=== PATIENT | male | born 1960 | race Caucasian/White ===

== ENCOUNTER 2017-07-20 08:54 | Emergency (ER) | payer BC ==
[~2017-07-20] VITALS: Ht 177.8 cm; Wt 77.3 kg
[2017-07-20 09:04] VITALS: BP 132/91; TEMP 98.2
[2017-07-20] MEDS ORDERED: FLONASEALLERGY NS (09:26)
[2017-07-20] MEDS ORDERED: ZYRTEC 10MG10 MG PO (09:26)
[2017-07-20] MEDS ORDERED: NORCO 325 MG-51 TAB PO (10:54)
[2017-07-20 11:17] VITALS: PULSE 68
== END 2017-07-20 11:18 | disposition home or self-care (01) ==
LOC: COL.ER 08:54
DX: S22.32XA Fracture of one rib, left side, initial encounter for closed fracture (principal); W00.0XXA Fall on same level due to ice and snow, initial encounter; Y92.481 Parking lot as the place of occurrence of the external cause; Y99.0 Civilian activity done for income or pay
CPT/HCPCS: A9284